=== PATIENT | male | born 1955 | race Caucasian/White ===

== ENCOUNTER 2023-11-04 07:13 | Day surgery (SDC) | payer MEDICARE ==
[2023-11-04] MEDS ORDERED: fentaNYL 50 MCG/ML SDV ONE (07:27)
[2023-11-04] MEDS ORDERED: Propofol 200 MG/20 ML SDV ONE (07:27)
[2023-11-04] MEDS: Sodium Chloride 0.9% 1,000 ML IV SCH (07:48)
== END 2023-11-04 10:39 | disposition home or self-care (01) ==
LOC: JP.SDS 07:13
PROVIDERS: ATTEND Surgery
DX: K64.8 Other hemorrhoids (principal); K57.30 Diverticulosis of large intestine without perforation or abscess without bleeding; E11.9 Type 2 diabetes mellitus without complications; J44.9 Chronic obstructive pulmonary disease, unspecified; I10 Essential (primary) hypertension; F17.200 Nicotine dependence, unspecified, uncomplicated
CPT/HCPCS: 00811; 45380; 45398; 88305; J2704; J3010; J7030